=== PATIENT | male | born 1985 | race Caucasian/White ===

== ENCOUNTER 2016-12-17 11:02 | Emergency (ER) | payer OTHER ==
[~2016-12-17] VITALS: Ht 188 cm; Wt 150.0 kg
[~2016-12-17 11:02] MED LIST: AMOXICILLIN500 MG PO; BUPROPION HCL100 M1 PO; LOSARTAN POTASS25 MG PO; MELOXICAM15 MG PO; NAPROXEN500 MG PO; PERCOCET 7.51 TABLET PO; ULTRAM50 MG PO; WELLBUTRIN SR150 MG PO
[2016-12-17 12:45] LABS: MCH 23.6 PG (29.0-34.0); MCHC 31.8 G/DL (30.0-36.0); MCV 74.3 FL (86-99); MEAN PLAT.VOLUME 9.1 uM^3 (9.0-12.4); PLATELET COUNT 397 K/uL (156-360); RBC DIS.WIDTH-CV 15.8 % (11.8-14.6); RBC DIS.WIDTH-SD 42.1 % (39-53); RED BLOOD COUNT 5.38 M/uL (4.00-5.50); WHITE BLOOD COUNT 16.2 K/uL (4.1-10.2)
[2016-12-17 12:48] LABS: EOSINOPHIL (%) 0.2 % (0-5); IMMATURE GRANULOCYTE (%) 0.3 % (0.0-0.7); IMMATURE GRANULOCYTE COUNT 0.5 K/uL; LYMPHOCYTE COUNT 1.2 K/uL (1.0-2.8); MONOCYTE (%) 3.7 % (3-12); MONOCYTE COUNT 0.6 K/uL (0-0.8); NEUTROPHIL (%) 87.9 % (45-76); NEUTROPHIL COUNT 14.2 K/uL (1.8-6.4)
[2016-12-17 12:59] LABS: CHLORIDE 104 mEq/L (99-109); SODIUM 141 mEq/L (136-147)
[2016-12-17 13:01] LABS: GLUCOSE 112 mg/dL (70-99)
[2016-12-17 13:02] LABS: ANION GAP 12 MEQ/L (2-14)
[2016-12-17 13:04] LABS: SERUM ETHYL ALCOHOL < 10 mg/dL
[2016-12-17 13:05] LABS: GFR ESTIMATE (CALCULATED) > 59 mL/min/
[2016-12-17 13:06] LABS: UREA NITROGEN (BUN) 11 mg/dL (9-23)
[2016-12-17 13:08] LABS: SALICYLATE < 5.0 MG/DL (15-30)
[2016-12-17 17:16] VITALS: BP 130/81
== END 2016-12-17 16:10 | disposition home or self-care (01) ==
LOC: EME 11:02
PROVIDERS: Emergency Medicine
DX: F18.20 Inhalant dependence, uncomplicated (principal); F33.1 Major depressive disorder, recurrent, moderate; F60.9 Personality disorder, unspecified; I10 Essential (primary) hypertension; F17.200 Nicotine dependence, unspecified, uncomplicated
CPT/HCPCS: 80048; 85025; 90837; 99281; 99285; G0480; J7030

== ENCOUNTER 2017-03-23 22:51 | Emergency (ER) | payer OTHER ==
[~2017-03-23] VITALS: Ht 188 cm; Wt 146.4 kg
[2017-03-23 23:25] LABS: BASOPHIL COUNT 0.1 K/uL (0-0.1); EOSINOPHIL (%) 0.2 % (0-5); HEMATOCRIT 44.1 % (38.0-50.0); IMMATURE GRANULOCYTE (%) 0.7 % (0.0-0.7); IMMATURE GRANULOCYTE COUNT 0.1 K/uL; INSTRUMENT ABS NEUTROPHIL CT 11.9 K/uL; LYMPHOCYTE COUNT 1.6 K/uL (1.0-2.8); MCH 23.7 PG (29.0-34.0); MCHC 31.1 G/DL (30.0-36.0); MCV 76.4 FL (86-99); MEAN PLAT.VOLUME 8.9 uM^3 (9.0-12.4); MONOCYTE (%) 5.1 % (3-12); MONOCYTE COUNT 0.7 K/uL (0-0.8); NEUTROPHIL (%) 82.4 % (45-76); NEUTROPHIL COUNT 11.9 K/uL (1.8-6.4); PLATELET COUNT 356 K/uL (156-360); RBC DIS.WIDTH-CV 16.7 % (11.8-14.6); RBC DIS.WIDTH-SD 44.8 % (39-53); RED BLOOD COUNT 5.77 M/uL (4.00-5.50); WHITE BLOOD COUNT 14.4 K/uL (4.1-10.2)
[2017-03-23 23:36] LABS: CHLORIDE 99 mEq/L (99-109); POTASSIUM 4.1 mEq/L (3.7-5.4); SODIUM 140 mEq/L (136-147)
[2017-03-23 23:39] LABS: GLUCOSE 134 mg/dL (70-99)
[2017-03-23 23:40] LABS: ANION GAP 14 MEQ/L (2-14)
[2017-03-23 23:42] LABS: SERUM ETHYL ALCOHOL < 10 mg/dL
[2017-03-23 23:43] LABS: ALKALINE PHOSPHATASE 89 IU/L (3-129); GFR ESTIMATE (CALCULATED) > 59 mL/min/
[2017-03-23 23:44] LABS: DIRECT BILIRUBIN 0.3 mg/dL (0.0-0.3); UREA NITROGEN (BUN) 16 mg/dL (9-23)
[2017-03-23 23:46] LABS: SALICYLATE < 5.0 MG/DL (15-30); TROP-I INTERPRETATION NEGATIVE; TROPONIN-I < 0.01 ng/mL (0.0-0.30)
[2017-03-24 00:29] LABS: AMPHETAMINE NEGATIVE (500 ng/mL); BARBITURATES NEGATIVE (200 ng/mL); BENZODIAZEPINES NEGATIVE (150 ng/mL); COCAINE NEGATIVE (150 ng/mL); INTERNAL CONTROLS VALID? YES; METHADONE NEGATIVE (200 ng/mL); METHAMPHETAMINE NEGATIVE (500 ng/mL); OPIATES (MORPHINE) NEGATIVE (100 ng/mL); OXYCODONE NEGATIVE (100 ng/mL); PHENCYCLIDINE NEGATIVE (25 ng/mL); PROPOXYPHENE NEGATIVE (300 ng/mL); THC CANNABINOIDS PRESUMPTIVE POSITIVE (50 ng/mL); TRICYCLIC ANTIDEPRESSANTS NEGATIVE (300 ng/mL)
[2017-03-24 00:30] LABS: ADD MEDTOX COMMENT Y
[2017-03-24 09:11] VITALS: BP 135/88
== END 2017-03-24 09:35 | disposition home or self-care (01) ==
LOC: EME → EDBD 22:51 → EME 03-24 09:35
PROVIDERS: Personal Emergency Response Attendant
DX: F33.2 Major depressive disorder, recurrent severe without psychotic features (principal); T59.892A Toxic effect of other specified gases, fumes and vapors, intentional self-harm, initial encounter; R11.2 Nausea with vomiting, unspecified; F18.10 Inhalant abuse, uncomplicated; F12.90 Cannabis use, unspecified, uncomplicated; F41.9 Anxiety disorder, unspecified; I10 Essential (primary) hypertension; M16.12 Unilateral primary osteoarthritis, left hip; G89.29 Other chronic pain; F17.200 Nicotine dependence, unspecified, uncomplicated; Z59.0 Homelessness
CPT/HCPCS: 80048; 80076; 84484; 84999; 85025; 90839; 93005; 99281; 99285; G0480

== ENCOUNTER 2017-03-26 10:53 | Inpatient (IN) | payer OTHER ==
[~2017-03-26] VITALS: Ht 188 cm; Wt 154.4 kg
[2017-03-26 11:58] LABS: ADD MEDTOX COMMENT Y; AMPHETAMINE NEGATIVE (500 ng/mL); BARBITURATES NEGATIVE (200 ng/mL); BENZODIAZEPINES NEGATIVE (150 ng/mL); COCAINE NEGATIVE (150 ng/mL); INTERNAL CONTROLS VALID? YES; METHADONE NEGATIVE (200 ng/mL); METHAMPHETAMINE NEGATIVE (500 ng/mL); OPIATES (MORPHINE) NEGATIVE (100 ng/mL); OXYCODONE NEGATIVE (100 ng/mL); PHENCYCLIDINE NEGATIVE (25 ng/mL); PROPOXYPHENE NEGATIVE (300 ng/mL); THC CANNABINOIDS PRESUMPTIVE POSITIVE (50 ng/mL); TRICYCLIC ANTIDEPRESSANTS NEGATIVE (300 ng/mL)
[2017-03-26] MEDS ORDERED: LATUDA40 MG PO (12:02)
[2017-03-26 12:04] LABS: HEMATOCRIT 45.8 % (38.0-50.0); MCH 23.9 PG (29.0-34.0); MCHC 31.2 G/DL (30.0-36.0); MCV 76.6 FL (86-99); MEAN PLAT.VOLUME 8.8 uM^3 (9.0-12.4); PLATELET COUNT 371 K/uL (156-360); RBC DIS.WIDTH-CV 17.3 % (11.8-14.6); RED BLOOD COUNT 5.98 M/uL (4.00-5.50); WHITE BLOOD COUNT 16.1 K/uL (4.1-10.2)
[2017-03-26 12:16] LABS: CHLORIDE 95 mEq/L (99-109); POTASSIUM 3.3 mEq/L (3.7-5.4); SODIUM 136 mEq/L (136-147)
[2017-03-26 12:18] LABS: GLUCOSE 129 mg/dL (70-99)
[2017-03-26 12:20] LABS: ANION GAP 16 MEQ/L (2-14)
[2017-03-26 12:21] LABS: SERUM ETHYL ALCOHOL < 10 mg/dL
[2017-03-26 12:22] LABS: GFR ESTIMATE (CALCULATED) > 59 mL/min/
[2017-03-26 12:23] LABS: UREA NITROGEN (BUN) 10 mg/dL (9-23)
[2017-03-26 14:41] VITALS: BP 140/92
[2017-03-26 15:22] VITALS: BP 140/92
[2017-03-26] MEDS ORDERED: losartan PO (15:41)
[2017-03-26 19:26] VITALS: BP 140/82
[2017-03-27 07:33] VITALS: BP 134/62
[2017-03-27 15:43] VITALS: BP 134/78
[2017-03-28 07:56] VITALS: BP 148/88
[2017-03-28 16:08] VITALS: BP 138/83
[2017-03-29 08:07] VITALS: BP 146/83
== END 2017-03-29 14:30 | disposition home or self-care (01) | DRG 885 ==
LOC: EME → EDBD 10:53 → EME 10:53 → 1WEST 13:32 → EDOF 13:32 → 1WEST 14:39
PROVIDERS: Emergency Medicine
DX: F33.9 Major depressive disorder, recurrent, unspecified (principal); I10 Essential (primary) hypertension; E66.3 Overweight; Z68.41 Body mass index [BMI] 40.0-44.9, adult; R45.851 Suicidal ideations; F18.9 Inhalant use, unspecified; F10.10 Alcohol abuse, uncomplicated; M16.12 Unilateral primary osteoarthritis, left hip; G89.29 Other chronic pain
CPT/HCPCS: 80048; 80076; 84484; 84999; 85025; 85027; 90837; 90839; 93005; 94660; 97150 GO; 97165 GO; 99281; 99285; G0480

== ENCOUNTER 2017-03-31 02:24 | Emergency (ER) | payer OTHER ==
[~2017-03-31] VITALS: Ht 188 cm; Wt 146.9 kg
[~2017-03-31 02:24] MED LIST changes: +LATUDA40 MG PO; +losartan PO
[2017-03-31 03:00] LABS: ADD MIUA? YES; BILIRUBIN NEGATIVE; BLOOD SMALL; COLOR STRAW ((YELLOW)); GLUCOSE (STRIP) NEGATIVE; KETONES NEGATIVE; LEUKOCYTES NEGATIVE; NITRITE NEGATIVE; PROTEIN (STRIP) 100; SPECIFIC GRAVITY 1.008 (1.000-1.030); UROBILINOGEN 0.2 MG/DL (0.2-1.0)
[2017-03-31 03:04] LABS: HEMATOCRIT 43.7 % (38.0-50.0); MCH 23.8 PG (29.0-34.0); MCHC 30.4 G/DL (30.0-36.0); MEAN PLAT.VOLUME 8.6 uM^3 (9.0-12.4); PLATELET COUNT 288 K/uL (156-360); RBC DIS.WIDTH-CV 16.6 % (11.8-14.6); RBC DIS.WIDTH-SD 45.9 % (39-53); WHITE BLOOD COUNT 11.6 K/uL (4.1-10.2)
[2017-03-31 03:07] LABS: BACTERIA RARE /HPF; EPITHELIAL CELLS RARE /HPF; MUCUS NONE SEEN /LPF; RED BLOOD CELLS 0-5 /HPF (0-5); UCUL ADDED? NO; WHITE BLOOD CELLS 0-5 /HPF (0-5)
[2017-03-31 03:15] LABS: AMPHETAMINE NEGATIVE (500 ng/mL); BARBITURATES NEGATIVE (200 ng/mL); BENZODIAZEPINES NEGATIVE (150 ng/mL); COCAINE NEGATIVE (150 ng/mL); INTERNAL CONTROLS VALID? YES; METHADONE NEGATIVE (200 ng/mL); METHAMPHETAMINE NEGATIVE (500 ng/mL); OPIATES (MORPHINE) NEGATIVE (100 ng/mL); OXYCODONE NEGATIVE (100 ng/mL); PHENCYCLIDINE NEGATIVE (25 ng/mL); PROPOXYPHENE NEGATIVE (300 ng/mL); THC CANNABINOIDS PRESUMPTIVE POSITIVE (50 ng/mL); TRICYCLIC ANTIDEPRESSANTS NEGATIVE (300 ng/mL)
[2017-03-31 03:16] LABS: ADD MEDTOX COMMENT Y
[2017-03-31 03:17] LABS: CHLORIDE 105 mEq/L (99-109); POTASSIUM 3.9 mEq/L (3.7-5.4); SODIUM 141 mEq/L (136-147)
[2017-03-31 03:18] LABS: GLUCOSE 172 mg/dL (70-99)
[2017-03-31 03:20] LABS: ANION GAP 10 MEQ/L (2-14)
[2017-03-31 03:21] LABS: SERUM ETHYL ALCOHOL < 10 mg/dL
[2017-03-31 03:22] LABS: GFR ESTIMATE (CALCULATED) > 59 mL/min/
[2017-03-31 03:23] LABS: UREA NITROGEN (BUN) 11 mg/dL (9-23)
[2017-03-31 18:28] VITALS: BP 125/96
== END 2017-03-31 18:30 ==
LOC: EME → EDBD 02:24 → EME 18:30
PROVIDERS: Emergency Medicine
DX: F32.9 Major depressive disorder, single episode, unspecified (principal); R45.851 Suicidal ideations; I10 Essential (primary) hypertension; G89.29 Other chronic pain; Z91.5 Personal history of self-harm; F17.200 Nicotine dependence, unspecified, uncomplicated; F19.10 Other psychoactive substance abuse, uncomplicated
CPT/HCPCS: 71020; 80048; 81003; 84999; 85027; 90837; 93005; 99281; 99284; G0480